=== PATIENT | male | born 1980 | race Two or more races ===

== ENCOUNTER 2016-07-15 23:55 | Observation (INO) | payer SELFPAY ==
--- NOTE | 2016-07-16 00:11 | EDPHY ---
H & P Stated Complaint: chest pain x 1 week, SOB, numbness in left hand/arm HPI/ROS: HPI CHIEF COMPLAINT: Chest pain, left hand tingling. HISTORY OF PRESENT ILLNESS: This patient very pleasant 36-year-old male denies any significant medical history surgical history presents to the emergency room left-sided chest pressure with tingling down his left arm and left hand. He is [place]-speaking only and food and beverage attendant was used for history review of systems. He states approximately 2 hours ago developed pressure in left side of his chest with tingling down his left arm. He denies nausea, jaw pain, back pain, neck pain, vomiting. He does have associated shortness of breath with this. This happened at rest. He tells me his left-sided chest pressure is currently 6 /10. Denies headache or neck pain. Denies weakness. He tells me a few years ago he had almost a heart attack he tells me he was given medication to prevent Past Medical History: No known significant medical history Past Surgical History: No significant surgical history Social History: Occasional alcohol use, denies drugs, tobacco products Family History: Noncontributory ROS REVIEW OF SYSTEMS: A comprehensive 10 point review of systems is otherwise negative aside from elements mentioned in the history of present illness. Exam Constitutional triage nursing summary reviewed, vital signs reviewed, awake/ alert. Eyes normal conjunctivae and sclera, EOMI, PERRLA. HENT normal inspection, atraumatic, moist mucus membranes, no epistaxis, neck supple/ no meningismus, no raccoon eyes. Respiratory clear to auscultation bilaterally, normal breath sounds, no respiratory distress, no wheezing. Cardiovascular rate normal, regular rhythm, no murmur, no edema, distal pulses normal. Gastrointestinal soft, non-tender, no rebound, no guarding, normal bowel sounds, no distension, no pulsatile mass. Genitourinary no CVA tenderness. Musculoskeletal no midline vertebral tenderness, full range of motion, no calf swelling, no tenderness of extremities, no meningismus, good pulses, neurovascularly intact. Skin pink, warm, & dry, no rash, skin atraumatic. Neurologic awake, alert and oriented x 3, AAOx3, moves all 4 extremities equally, motor intact, sensory intact, CN II-XII intact, normal cerebellar, normal vision, normal speech. Psychiatric normal mood/affect. Heme/Lymph/Immune no lymphadenopathy. Differential diagnosis includes but is not limited to: ACS, atypical chest pain , pneumothorax, pneumonia, pulmonary embolism, aortic dissection, congestive heart failure, tumor, musculoskeletal pain, esophageal pain, GERD, peptic ulcer disease, pancreatitis Medical Decision Making: This patient will have and IV established will recieve full-dose aspirin and nitroglycerin see if this improves his left-sided chest pressure. Will check troponin, EKG, chest x-ray patient be placed on full patent examiner. We will re-evaluate him after nitroglycerin Re-evaluation: EKG interpretation by me on record in [facility] system. Impression time of EKG is 0016, this is sinus rhythm rate of 74, there is no acute ischemic changes specifically no ST elevation, ST depression, T-wave abnormalities prolonged intervals. Unremarkable normal appearing EKG. ED x-ray chest one view: Negative for acute cardiopulmonary disease. Image interpreted by myself. Re-eval: 0148: Patient is now chest pain-free after 3 nitroglycerin tabs. He states he feels much better. He did receive full-dose aspirin. His noted is D- dimer is negative his troponin is negative and his EKG is nonischemic. Due to the complaint of patient having chest pressure left-sided with tingling down his left arm improved with nitroglycerin patient be admitted to the [facility] for ACS rule out. 0159: re-evaluation at this time patient is chest pain-free. I did speak with the hospitalist service Dr. Marino who accepts admission for chest pain rule out given that his pain improved with nitroglycerin. Does not have any significant risk factors for coronary artery disease however his story with chest pressure left-sided with tingling down his left arm relieved by nitro is concerning. His initial EKG is nonischemic, troponin negative, D-dimer negative and chest x-ray unremarkable. Patient be admitted to the [facility] for observation and cardiac rule out. Source: Patient - Personal History Tetanus Vaccine Date: < 10 years - Medical/Surgical History Hx Asthma: No Hx Chronic Respiratory Disease: No Hx Diabetes: No Hx Cardiac Disease: No Hx Renal Disease: No Hx Cirrhosis: No Hx Alcoholism: No Hx HIV/AIDS: No Hx Splenectomy or Spleen Trauma: No Other PMH: seizures, liver tumor - Social History Smoking Status: Former smoker Constitutional: Initial Vital Signs Temperature (C) 37 C 07/16/16 00:01 Heart Rate 82 07/16/16 00:01 Respiratory Rate 20 07/16/16 00:01 Blood Pressure 124/87 H 07/16/16 00:01 O2 Sat (%) 94 07/16/16 00:01 O2 Delivery Mode Room Air Allergies/Adverse Reactions: No Known Allergies Allergy (Unverified 07/15/16 23:59) Medical Decision Making - Data Points Laboratory Results: Laboratory Results 07/16/16 00:20 07/16/16 00:20 07/16/16 00:20 WBC 8.61 10^3/uL (3.80-9.50) RBC 5.16 10^6/uL (4.40-6.38) Hgb 15.1 g/dL (13.7-17.5) Hct 44.6 % (40.0-51.0) MCV 86.4 fL (81.5-99.8) MCH 29.3 pg (27.9-34.1) MCHC 33.9 g/dL (32.4-36.7) RDW 12.1 % (11.5-15.2) Plt Count 218 10^3/uL (150-400) MPV 10.6 fL (8.7-11.7) Neut % (Auto) 52.6 % (39.3-74.2) Lymph % (Auto) 36.0 % (15.0-45.0) [place] % (Auto) 6.9 % (4.5-13.0) Eos % (Auto) 2.8 % (0.6-7.6) Baso % (Auto) 0.5 % (0.3-1.7) Nucleat RBC Rel Count 0.0 % (0.0-0.2) Absolute Neuts (auto) 4.54 10^3/uL (1.70-6.50) Absolute Lymphs (auto) 3.10 H 10^3/uL (1.00-3.00) Absolute Monos (auto) 0.59 10^3/uL (0.30-0.80) Absolute Eos (auto) 0.24 10^3/uL (0.03-0.40) Absolute Basos (auto) 0.04 10^3/uL (0.02-0.10) Absolute Nucleated RBC 0.00 10^3/uL (0-0.01) Immature Gran % 1.2 H % (0.0-1.1) Immature Gran # 0.10 10^3/uL (0.00-0.10) PT 12.5 SEC (12.0-15.0) INR 0.94 (0.83-1.16) APTT 26.3 SEC (23.0-38.0) D-Dimer < 0.27 ug/mLFEU (0.00-0.50) Sodium 139 mEq/L (134-144) Potassium 4.0 mEq/L (3.5-5.2) Chloride 105 mEq/L (97-110) Carbon Dioxide 24 mEq/l (22-31) Anion Gap 10 mEq/L (8-16) BUN 17 mg/dL (7-23) Creatinine 0.9 mg/dL (0.7-1.3) Estimated GFR > 60 Glucose 101 H mg/dL (70-100) Calcium 9.2 mg/dL (8.5-10.4) Magnesium 2.1 mg/dL (1.6-2.3) Total Bilirubin 0.9 mg/dL (0.1-1.4) Conjugated Bilirubin 0.2 mg/dL (0.0-0.5) Unconjugated Bilirubin 0.7 mg/dL (0.0-1.1) AST 19 IU/L (17-59) ALT 29 IU/L (21-72) Alkaline Phosphatase 97 IU/L (38-126) Creatine Kinase 133 IU/L (0-224) CK-MB (CK-2) Fraction 1.12 ng/mL (0-3.19) Troponin I < 0.012 ng/mL (0-0.034) NT-Pro-B Natriuret Pep 42 pg/mL (0-125) Total Protein 7.4 g/dL (6.3-8.2) Albumin 4.1 g/dL (3.5-5.0) Lipase 71.0 IU/L (23-300) Medications Given: Discontinued Medications Aspirin (Aspirin) 324 mg PO EDNOW ONE Stop: 07/16/16 00:44 Last Admin: 07/16/16 01:14 Dose: 324 mg Nitroglycerin (Nitrostat) 0.4 mg SL Q5M PRN PRN Reason: Chest Pain Stop: 07/16/16 00:54 Last Admin: 07/16/16 01:26 Dose: 0.4 mg Departure - Departure Disposition: [facility] Inpatient Acute Clinical Impression: Chest pain Qualifiers: Chest pain type: unspecified Qualifier Code: (R07.9) Chest pain, unspecified Condition: Fair Referrals: Tamika Tran PA [Primary Care Provider] - As per Instructions
--- NOTE | 2016-07-16 00:24 | CPEKG ---
Heart Rate: 74 RR Interval: 811 P-R Interval: 148 QRSD Interval: 88 QT Interval: 364 QTC Interval: 404 P Gully: 63 QRS Gully: 30 T Wave Gully: 7 EKG Severity - NORMAL ECG - EKG Impression: SINUS RHYTHM Electronically Signed By: Negro Jha 17-Jul-2016 07:02:04
[2016-07-16] MEDS ORDERED: ASPIRIN 81 MG CHEWABLE TAB PO ONE (00:43)
[2016-07-16 00:50] LABS: % IMMATURE GRANULYOCYTES 1.2 % (0.0-1.1); ADD DIFF? NO; ADD MORPH? NO; ADD SCAN? NO; ATYPICAL LYMPHOCYTE FLAG 10 (0-99); FRAGMENT RBC FLAG 0 (0-99); HEMATOCRIT 44.6 % (40.0-51.0); HEMOGLOBIN 15.1 g/dL (13.7-17.5); LEFT SHIFT FLG 10 (0-99); LIPEMIA HEMOLYSIS FLAG 90 (0-99); MEAN CELL HEMOGLOBIN 29.3 pg (27.9-34.1); MEAN CELL HEMOGLOBIN CONCENTR. 33.9 g/dL (32.4-36.7); MEAN CELL VOLUME 86.4 fL (81.5-99.8); MEAN PLATELET VOLUME 10.6 fL (8.7-11.7); PLATELET CLUMPS FLAG 10 (0-99); PLATELET COUNT 218 10^3/uL (150-400); RED BLOOD CELL COUNT 5.16 10^6/uL (4.40-6.38); RED CELL DISTRIBUTION WIDTH 12.1 % (11.5-15.2)
[2016-07-16 00:58] LABS: ALANINE AMINOTRANSFERASE 29 IU/L (21-72); ALBUMIN 4.1 g/dL (3.5-5.0); ALKALINE PHOSPHATASE 97 IU/L (38-126); ANION GAP 10 mEq/L (8-16); APTT 26.3 SEC (23.0-38.0); ASPARTATE AMINOTRANSFERASE 19 IU/L (17-59); BILIRUBIN,TOTAL 0.9 mg/dL (0.1-1.4); BILIRUBIN-CONJUGATED 0.2 mg/dL (0.0-0.5); BILIRUBIN-UNCONJUGATED 0.7 mg/dL (0.0-1.1); CALCIUM 9.2 mg/dL (8.5-10.4); CARBON DIOXIDE 24 mEq/l (22-31); CHLORIDE 105 mEq/L (97-110); CREATININE 0.9 mg/dL (0.7-1.3); GLOMERULAR FILTRATION RATE > 60; GLUCOSE 101 mg/dL (70-100); INR 0.94 (0.83-1.16); MAGNESIUM 2.1 mg/dL (1.6-2.3); PROTIME(PATIENT) 12.5 SEC (12.0-15.0); SODIUM 139 mEq/L (134-144); TOTAL PROTEIN 7.4 g/dL (6.3-8.2)
[2016-07-16] MEDS ORDERED: NITROGLYCERIN 0.4 MG BTL SL ONE (01:18)
[2016-07-16 01:20] LABS: CREATINE KINASE-MB FRACTION 1.12 ng/mL (0-3.19); TROPONIN I < 0.012 ng/mL (0-0.034)
[2016-07-16] MEDS: NITROGLYCERIN 0.4 MG BTL SL PRN ×2 (01:20→01:26)
--- NOTE | 2016-07-16 01:41 | CPEKG ---
Heart Rate: 158 RR Interval: 380 QRSD Interval: 248 QT Interval: 300 QTC Interval: 487 P Stigler: 0 QRS Stigler: 234 EKG Severity - DEFECTIVE ECG - EKG Impression: NO FURTHER ANALYSIS ATTEMPTED FOR THIS ECG - NOT ENOUGH LEADS COULD BE MEASURED Electronically Signed By: Negro Jha 17-Jul-2016 07:02:04
[2016-07-16 02:32] VITALS: RESP 16
[2016-07-16] MEDS ORDERED: NITROGLYCERIN 0.4 MG BTL SL PRN (02:34)
[2016-07-16] MEDS ORDERED: ACETAMINOPHEN 325 MG TAB PO PRN (02:34)
--- NOTE | 2016-07-16 05:52 | PDGENHP ---
History and Physical - Chief Complaint Chest pain - History of Present Illness Patient is a 36-year-old male with no known medical history who presents to the ED complaining of chest pain. Patient reports earlier in the day he was working in [employer], which involved shoveling snow into his work truck. Then later in the evening he was sitting at home and on his couch when he began experiencing left-sided chest pressure, which he describes it had radiated down his left arm with associated left arm numbness and tingling. He said the pressure was constant, not associated with palpitations, nausea or lightheaded. Symptoms persisted for over an hour so he decided to come to the ED for further evaluation. On review of his medical records, it appears that 2011 patient had been evaluated in the ED for several times for left-sided chest wall pain, which was deemed to be musculoskeletal in nature. He seems he was referred to a confidential secretary but patient denies ever being evaluated by a confidential secretary. He has never had a stress test or an echocardiogram that he is aware of. On arrival to the ED patient was afebrile and hemodynamically stable. Labs including troponin were unremarkable. Chest x-ray was unremarkable. EKG did not reveal any evidence of ischemia. Patient was admitted to the hospital service for further management. History Information - Allergies/Home Medication List Allergies/Adverse Reactions: No Known Allergies Allergy (Unverified 07/15/16 23:59) I have personally reviewed and updated: family history, medical history, social history, surgical history - Past Medical History no pertinent PMH - Surgical History Additional surgical history: femoral fracture repair - Family History Additional family history: Patient has 2 cousins and uncle who he reports were in their 40s from CAD. 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 Lives with and children, originally from [place] Review of Systems ROS: 10pt was reviewed & negative except for what was stated in HPI & below Physical Exam Temp Pulse Resp BP Pulse Ox 37 C 76 16 102/67 92 07/16/16 00:01 07/16/16 02:30 07/16/16 02:30 07/16/16 02:30 07/16/16 02:30 Constitutional: no apparent distress, appears nourished, not in pain Eyes: PERRL, anicteric sclera, EOMI Ears, Nose, Mouth, Throat: moist mucous membranes, hearing normal, ears appear normal, no oral mucosal ulcers Cardiovascular: regular rate and rhythym, no murmur, rub, or gallop, pulses symmetric bilaterally, No JVD, No edema Peripheral Pulses: 2+: dorsalis-pedis (R), dorsalis-pedis (L) Respiratory: no respiratory distress, no rales or rhonchi, clear to auscultation Gastrointestinal: normoactive bowel sounds, soft, non-tender abdomen, no palpable masses Genitourinary: no bladder fullness, no bladder tenderness Skin: warm, normal color, no rashes or abrasions, no fluctuance, no induration, No mottled Musculoskeletal: full muscle strength, no muscle tenderness, normal joint ROM, no joint effusions Neurologic: AAOx3, sensation intact bilaterally, CN II-XII Intact, No weakness, No numbness Psychiatric: interacting appropriately, not anxious, not encephalopathic, thought process linear Lab Data & Imaging Review 07/16/16 00:20 07/16/16 00:20 WBC 8.61 10^3/uL (3.80-9.50) 07/16/16 00:20 RBC 5.16 10^6/uL (4.40-6.38) 07/16/16 00:20 Hgb 15.1 g/dL (13.7-17.5) 07/16/16 00:20 Hct 44.6 % (40.0-51.0) 07/16/16 00:20 MCV 86.4 fL (81.5-99.8) 07/16/16 00:20 MCH 29.3 pg (27.9-34.1) 07/16/16 00:20 MCHC 33.9 g/dL (32.4-36.7) 07/16/16 00:20 RDW 12.1 % (11.5-15.2) 07/16/16 00:20 Plt Count 218 10^3/uL (150-400) 07/16/16 00:20 MPV 10.6 fL (8.7-11.7) 07/16/16 00:20 Neut % (Auto) 52.6 % (39.3-74.2) 07/16/16 00:20 Lymph % (Auto) 36.0 % (15.0-45.0) 07/16/16 00:20 [place] % (Auto) 6.9 % (4.5-13.0) 07/16/16 00:20 Eos % (Auto) 2.8 % (0.6-7.6) 07/16/16 00:20 Baso % (Auto) 0.5 % (0.3-1.7) 07/16/16 00:20 Nucleat RBC Rel Count 0.0 % (0.0-0.2) 07/16/16 00:20 Absolute Neuts (auto) 4.54 10^3/uL (1.70-6.50) 07/16/16 00:20 Absolute Lymphs (auto) 3.10 10^3/uL (1.00-3.00) H 07/16/16 00:20 Absolute Monos (auto) 0.59 10^3/uL (0.30-0.80) 07/16/16 00:20 Absolute Eos (auto) 0.24 10^3/uL (0.03-0.40) 07/16/16 00:20 Absolute Basos (auto) 0.04 10^3/uL (0.02-0.10) 07/16/16 00:20 Absolute Nucleated RBC 0.00 10^3/uL (0-0.01) 07/16/16 00:20 Immature Gran % 1.2 % (0.0-1.1) H 07/16/16 00:20 Immature Gran # 0.10 10^3/uL (0.00-0.10) 07/16/16 00:20 PT 12.5 SEC (12.0-15.0) 07/16/16 00:20 INR 0.94 (0.83-1.16) 07/16/16 00:20 APTT 26.3 SEC (23.0-38.0) 07/16/16 00:20 D-Dimer < 0.27 ug/mLFEU (0.00-0.50) 07/16/16 00:20 Sodium 139 mEq/L (134-144) 07/16/16 00:20 Potassium 4.0 mEq/L (3.5-5.2) 07/16/16 00:20 Chloride 105 mEq/L (97-110) 07/16/16 00:20 Carbon Dioxide 24 mEq/l (22-31) 07/16/16 00:20 Anion Gap 10 mEq/L (8-16) 07/16/16 00:20 BUN 17 mg/dL (7-23) 07/16/16 00:20 Creatinine 0.9 mg/dL (0.7-1.3) 07/16/16 00:20 Estimated GFR > 60 07/16/16 00:20 Glucose 101 mg/dL (70-100) H 07/16/16 00:20 Calcium 9.2 mg/dL (8.5-10.4) 07/16/16 00:20 Magnesium 2.1 mg/dL (1.6-2.3) 07/16/16 00:20 Total Bilirubin 0.9 mg/dL (0.1-1.4) 07/16/16 00:20 Conjugated Bilirubin 0.2 mg/dL (0.0-0.5) 07/16/16 00:20 Unconjugated Bilirubin 0.7 mg/dL (0.0-1.1) 07/16/16 00:20 AST 19 IU/L (17-59) 07/16/16 00:20 ALT 29 IU/L (21-72) 07/16/16 00:20 Alkaline Phosphatase 97 IU/L (38-126) 07/16/16 00:20 Creatine Kinase 133 IU/L (0-224) 07/16/16 00:20 CK-MB (CK-2) Fraction 1.12 ng/mL (0-3.19) 07/16/16 00:20 Troponin I < 0.012 ng/mL (0-0.034) 07/16/16 00:20 NT-Pro-B Natriuret Pep 42 pg/mL (0-125) 07/16/16 00:20 Total Protein 7.4 g/dL (6.3-8.2) 07/16/16 00:20 Albumin 4.1 g/dL (3.5-5.0) 07/16/16 00:20 Lipase 71.0 IU/L (23-300) 07/16/16 00:20 Visualized and Interpreted Chest x-ray results: Yes Chest X-Ray results: no infiltrate, normal Visualized and Interpreted EKG results: Yes EKG Interpretation: Positive for: normal sinsus rhythm. Negative for: NS ST wave abnormalities Assessment & Plan Assessment: Patient is a 36-year-old male with no significant medical history who presents to the ED with complaint of left-sided chest pain with associated right left arm numbness. Initial ED workup is unrevealing, symptoms improved with aspirin and sublingual nitro. Plan: # chest pain Patient pain description is concerning for cardiac etiology, patient's risk factors include positive family history for premature CAD, former smoking history. Will rule out ACS with serial troponins and EKGs, if unrevealing will obtain exercise stress test in a.m. for further risk stratification. Will continue aspirin and also check lipid panel and TSH. # dispo: observe in [facility] # full code
[2016-07-16 06:47] LABS: CHOLESTEROL 206 mg/dL (140-200); CHOLESTEROL/HDL RATIO 5.02 RATIO (1.00-4.97); HIGH DENSITY LIPOPROTEIN 41 mg/dL (40-65); LDL/HDL RATIO 2.95 RATIO (1.00-3.64); LOW DENSITY LIPOPROTEIN 121 mg/dL (70-100); NON-HIGH DENSITY LIPOPROTEIN 165 mg/dL (90-129); TRIGLYCERIDE 222 mg/dL (40-150); VERY LOW DENSITY LIPOPROTEINS 44 mg/dL (8-25)
[2016-07-16] MEDS ORDERED: ASPIRIN 325 MG TAB PO SCH (09:00)
--- NOTE | 2016-07-16 09:23 | CPEKG ---
Heart Rate: 67 RR Interval: 896 P-R Interval: 148 QRSD Interval: 92 QT Interval: 372 QTC Interval: 393 P Conley: 69 QRS Conley: 54 T Wave Conley: 18 EKG Severity - NORMAL ECG - EKG Impression: SINUS RHYTHM Electronically Signed By: Danny Mitchell 16-Jul-2016 17:21:48
[2016-07-16 09:27] VITALS: O2SAT 94
--- NOTE | 2016-07-16 09:52 | ECHO ---
[id number] + + [address] : : [place] [address] : : [phone] + + Adult Echocardiographic Report + + :Name: KERON CLEMENTS JStudy Date: 07/16/2016 08:23 AM : : Hospital Admission Number: [id number] Patient Location: 144: :: 1980 Gender: Male Height: 66 in : :Age: 36 yrs Race: ,OT Weight: 160 lb : :Reason For Study: chest pain, syncope : : BSA: 1.8 meters2 : :History: chest pain, syncope : + + MMode/2D Measurements & Calculations IVSd: 0.70 cm RVDd: 2.5 cm FS: 28.8 % Ao root diam: LVPWd: 0.86 cm LVIDd: 4.5 cm EDV(Teich): 2.4 cm LVIDs: 3.2 cm 94.8 ml LA dimension: ESV(Teich): 3.3 cm 42.1 ml EF(Teich): 55.6 % LVLd ap4: 8.1 cm SV(MOD-sp4): EDV(MOD-sp4): 61.0 ml 102.0 ml LVLs ap4: 7.2 cm ESV(MOD-sp4): 41.0 ml EF(MOD-sp4): 59.8 % Normal Measurement Values: + + :LVIDd (3.5-5.7cm) IVSd (0.6-1.1cm) LVPWd (0.6-1.1cm) Aortic Root (2.0-3.7cm)Left Atrium (1.5-4.0cm): :LV Vol(d) (76-115ml) LV Vol(s) (29-48ml) Ejec Fraction (50-65%)PV Rigo (0.6- 1.2m/s) TV Rigo (0.4-1.0m/s) : :MV E Rigo (0.8-1.0m/s)MV A Rigo (0.3-1.0m/s)LVOT Rigo (0.7-1.2m/s) Asc Ao Rigo ( 0.9-1.8m/s) : + + Doppler Measurements & Calculations MV E max rigo: Ao V2 max: LV V1 max: PA V2 max: 66.6 cm/sec 114.7 cm/sec 108.6 cm/sec 118.2 cm/sec MV A max rigo: Ao max PG: LV V1 max PG: PA max P.7 cm/sec 5.3 mmHg 4.7 mmHg 5.6 mmHg MV E/A: 1.1 MV dec time: 0.24 sec Left Ventricle The left ventricle is normal in size and function. There is normal left ventricular wall thickness. Ejection Fraction = 55-60%. No regional wall motion abnormalities noted. Right Ventricle The right ventricle is normal in size and function. Atria The left atrial size is normal. Right atrial size is normal. Mitral Valve The mitral valve is normal in structure and function. There is no mitral valve stenosis. There is trace mitral regurgitation. Tricuspid Valve The tricuspid valve is normal in structure and function. There is no tricuspid stenosis. There is trace to mild tricuspid regurgitation. Aortic Valve The aortic valve is trileaflet. There is no aortic stenosis. There is no aortic insufficiency. Pulmonic Valve The pulmonic valve is normal in structure and function. Great Vessels The aortic root is normal size. Pericardium/Pleural There is no pericardial effusion. Conclusion A two-dimensional transthoracic echocardiogram with M-mode and Doppler was performed. The left ventricle is normal in size and function. Ejection Fraction = 55-60%. There is trace mitral regurgitation. There is trace to mild tricuspid regurgitation. Final Reading Physician: Marianna Castaneda signed on 07/16/2016 09:52 AM Ordering Physician: Erin Marino Performed By: Marlene Smith
--- NOTE | 2016-07-16 10:50 | DX ---
Chest, One View Portable at 0057 hours History: Chest pain. Comparison: June 2011 Findings: Poor respiratory phase. Cardiac silhouette is normal in size. No pneumonia, congestive hea rt failure, pleural effusion, or pneumothorax. Impression: 1. Poor respiratory phase without definite focal infiltrate 2. Consider chest two views when the patient's medical condition permits.
[2016-07-16 12:09] VITALS: BP 118/75; PULSE 103; TEMP 98.4
--- NOTE | 2016-07-16 18:30 | GDS ---
[f rep st] DISCHARGE SUMMARY DIAGNOSIS: Chest pain, likely due to chest wall pain. HOSPITAL COURSE: A 36-year-old man admitted with 8 days of chest pain. He had negative troponins, n onischemic EKG. Underwent a treadmill stress test, went over 10 minutes on the Jamie protocol with n o ischemic changes. This was a normal exercise EKG test. I think this is likely due to pectoralis s train based on my exam. Recommended ibuprofen and Tylenol. Notably, his lipids were drawn and his L DL is 121, which is appropriate given his risk factor profile. This was all discussed with him via [facility] naturopathic physician. He also underwent an echocardiogram, which showed normal ejection fraction. No wall motion abnormalities. Trace mitral and tricuspid regurgitation. /[id number]
== END 2016-07-16 15:49 | disposition home or self-care (01) ==
LOC: F1N 07-16 02:38
PROVIDERS: ADMIT Internal Medicine; ATTEND Internal Medicine
DX: R07.89 Other chest pain (principal); Z87.891 Personal history of nicotine dependence
CPT/HCPCS: G0378

== ENCOUNTER 2017-02-25 19:40 | Emergency (ER) | payer MEDICAID, OTHER ==
[2017-02-25 19:50] VITALS: TEMP 99
[2017-02-25] MEDS ORDERED: PROPARACAINE 0.5% 15 ML OPHT DROP LEFTEYE ONE (20:02)
[2017-02-25] MEDS ORDERED: FLUORESCEIN SODIUM 1 MG STRIP OP ONE (20:02)
--- NOTE | 2017-02-25 20:06 | EDPHY ---
H & P Stated Complaint: eye irritation; post injury on 12/20 - Personal History Current Tetanus/Diphtheria Vaccine: Yes Tetanus Vaccine Date: < 10 years - Medical/Surgical History Hx Asthma: No Hx Chronic Respiratory Disease: No Hx Diabetes: No Hx Cardiac Disease: No Hx Renal Disease: No Hx Cirrhosis: No Hx Alcoholism: No Hx HIV/AIDS: No Hx Splenectomy or Spleen Trauma: No Other PMH: PMHx: seizures, liver tumor. PSHx: denies - Social History Smoking Status: Former smoker Time Seen by Provider: 02/25/17 20:04 HPI/ROS: CHIEF COMPLAINT: Left eye injury HISTORY OF PRESENT ILLNESS: This patient is a 36 year old male complaining of blurry vision, redness, and discharge in his left eye secondary to an injury at work 12/19/16, two months ago. 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 He has followed up numerous times with workers comp providers at [facility], where he was diagnosed with "orbital contusion ". He continues to feel a foreign body sensation and pain. He was prescribed drops which relieved his redness and pain, but these symptoms returned when he finished his prescription. His vision has been getting worse little by little since the incident. Yesterday, his eye started watering and he began to have purulent discharge. Today, the redness, discharge, and blurriness increased. He states his vision in his left eye is very poor, but he can see color and has full field of vision though it is blurry. His foreign body sensation has never resolved. He denies recent illness or other complaints. REVIEW OF SYSTEMS: A 10 point review of systems was performed and is negative with the exception of the elements mentioned in the history of present illness. (Jackelin Hair) - Medical/Surgical History PMH: Seizures, liver tumor. (Jackelin Hair) - Social History Additional Social History: Pashto-speaking. Daughter at bedside. 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 (Jackelin Hair) - Physical Exam Exam: left eye: Visual Acuity: noted from Nurse's notes, able to count fingers at 3 feet max distance Lids: lower lid everted--7mm plastic FB in conjunctival sac, upper lid everted-- 9mm undulating plastic FB present Conjunctivae: diffuse erythema and yellowish discharge Pupils: equal round and reactive to light EOMI Cornea: Normal, no fluorescein upake Anterior chamber: Clear, no hyphema and no WBC (Jackelin Hair) Constitutional: Initial Vital Signs Temperature (C) 37.2 C 02/25/17 19:47 Heart Rate 90 02/25/17 19:47 Respiratory Rate 14 02/25/17 19:47 Blood Pressure 114/70 02/25/17 19:47 O2 Sat (%) 95 02/25/17 19:47 O2 Delivery Mode Room Air Allergies/Adverse Reactions: No Known Allergies Allergy (Unverified 07/15/16 23:59) Home Medications: Medication Instructions Recorded NK [No Known Home Meds] 07/16/16 Medical Decision Making Procedures: Alcaine instilled in left eye. FB's easily and gently removed with Qtip and forceps. Fluorescein instilled: no uptake (Jackelin Hair) ED Course/Re-evaluation: This pt presents with acute conjunctivitis secondary to retained FB in left conjunctival sac. FB easily removed. Culture sent. Vision unchanged following foreign body removal, but pain resolved. Consulted Dr. Kirk, will obtain CT orbit tonight. If CT negative, f/u in office in am. Ocuflox dispensed. (Jackelin Hair) Differential Diagnosis: Differential diagnosis includes hyphema, acute iritis, traumatic mydriasis, corneal abrasion, globe rupture. (Jackelin Hair) Other Provider: No intra orbital foreign body per Dr. Hoskins on CT scan at 9:[address] Hair. (Grover Gonzalez) - Data Points Microbiology Results: MICROBIOLOGY 02/25/17 20:25 Eye - Swab Gram Stain - Final Medications Given: Discontinued Medications Fluorescein Sodium (Lfcid-P-Capjs) 1 mg OP EDNOW ONE Stop: 02/25/17 20:03 Last Admin: 02/25/17 20:06 Dose: 1 mg Ofloxacin (Ocuflox 0.3% Opht Drops Prepack) 1 btl TAKEHOME EDNOW ONE Stop: 02/25/17 20:36 Last Admin: 02/25/17 21:08 Dose: 1 btl Proparacaine HCl (Alcaine 0.5%) 1 drops LEFTEYE ONCE ONE Stop: 02/25/17 20:03 Last Admin: 02/25/17 20:06 Dose: 1 drops Departure - Departure Disposition: Home, Routine, Self-Care Clinical Impression: Eye foreign bodies Qualifiers: Encounter type: initial encounter Laterality: left Qualified Code(s): T15.92XA - Foreign body on external eye, part unspecified, left eye, initial encounter Conjunctivitis Qualifiers: Conjunctivitis type: acute Acute conjunctivitis type: unspecified Laterality: left Qualified Code(s): H10.32 - Unspecified acute conjunctivitis, left eye Condition: Good Instructions: Eye Foreign Body (ED), Conjunctivitis (ED) Additional Instructions: 1. Follow up with an eye doctor tomorrow without fail. Call to make an appointment. 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 The address and phone number are attached. 2. Use your Ocuflox drops as prescribed. 3. Return to the emergency department for increased pain, redness, or discharge from your eye, any further changes in vision, or other worsening of condition. 1. Madeline james richie de seguimiento con un doctor del noemy maana sin falta. Llame para hacer james richie. Le hemos recomendado con el oftalmologo en llamada. La direccion y uday de telefono esta adjuntos. 2. Use vianey gotas Ocuflox a elda se le recetaron. 3. Regrese a la tito de emergencia si incrementa el dolor, rojizo, o si el noemy drena, cualquier cambio en akins vision, u otra condicion peor. Referrals: Jarret Kirk MD [Medical Doctor] - As per Instructions Report Scribed for: Jackelin Hair Report Scribed by: Richa Mendenhall Date of Report: 02/25/17 Time of Report: 20:06 Physician Review and Approval Statement: 02/25/17 20:06 Portions of this note were transcribed by a medical coding specialist. I personally performed a history, physical exam, medical decision making, and confirmed accuracy of information the transcribed note. (Jackelin Hair)
[2017-02-25] MEDS ORDERED: OFLOXACIN 0.3% SOLN PREPACK OPHT.BTL TAKEHOME ONE (20:35)
[2017-02-25 22:34] VITALS: BP 115/72; PULSE 84; RESP 16; O2SAT 96
== END 2017-02-25 22:34 | disposition home or self-care (01) ==
PROC: 08C1XZZ Extirpation of Matter from Left Eye, External Approach (ICD-10-PCS; principal; 2017-02-25)
DX: T15.12XA Foreign body in conjunctival sac, left eye, initial encounter (principal); H10.32 Unspecified acute conjunctivitis, left eye; W29.4XXA Contact with nail gun, initial encounter; Y92.69 Other specified industrial and construction area as the place of occurrence of the external cause; Y99.0 Civilian activity done for income or pay; Y93.89 Activity, other specified; Z87.891 Personal history of nicotine dependence

== ENCOUNTER 2018-04-16 18:38 | Emergency (ER) | payer SELFPAY ==
[2018-04-16 18:46] VITALS: BP 103/71
--- NOTE | 2018-04-16 19:17 | EDPHY ---
H & P Stated Complaint: Mech fall x1wk, xyphoid pn, crepitus c mvmnt, denies SOB Time Seen by Provider: 04/16/18 19:16 HPI/ROS: HPI: This is a 37-year-old male who presents with Chief Complaint: Mech fall x1wk, xyphoid pn, denies SOB Location: lower sternum Quality: Injury Duration: 1 week ago Signs and Symptoms: no shortness of breath at rest, no shortness of breath on exertion, no cough, no chest pain, no palpitations, no lower extremity edema, no wheezing, no orthopnea, no paroxysmal nocturnal dyspnea, no fever, no injury/ trauma, no hemoptysis, no carpal pedal spasms Timing: Acute, intermittent episodes Severity: Mild Context: Patient presents complaining of accidentally falling forward when he tripped over something in the bathroom 1 week ago. He reports that he fell against the bath tub hitting his lower sternum. He felt immediate, constant, moderate, nonradiating pain. The pain has persisted with touching the area. Denies any cough, bruising, shortness of breath, pleuritic chest pain. He has tried ibuprofen with mild transient relief. Modifying Factors: See above Comment: ROS: A comprehensive 10 system review of systems is otherwise negative aside from elements mentioned in the history of present illness. MEDICAL/SURGICAL/SOCIAL HISTORY: Medical history: Seizure disorder, liver tumor Surgical history: Denies Social history: with children. Former smoker. CONSTITUTIONAL: Middle-aged male, polite and cooperative, awake and alert, no obvious distress HEENT: Atraumatic and normocephalic, PERRL, EOMI. Nares patent; no rhinorrhea; no nasal mucosal edema. Tympanic membranes clear. Oropharynx clear, no exudate and moist pink mucosa. Airway patent. No lymphadenopathy. No meningismus. Cardiovascular: Normal S1/S2, regular rate, regular rhythm, without murmur rub or gallop. PULMONARY/CHEST: Symmetrical and mild tenderness over the xiphoid process; no crepitus/ecchymosis. Clear to auscultation bilaterally. Good air movement. No accessory muscle usage. ABDOMEN: Soft, nondistended, nontender, no rebound, no guarding, no peritoneal signs, no masses or organomegaly. No CVAT. EXTREMITIES: 2/2 pulses, strength 5/5, no deformities, no clubbing, no cyanosis or edema. NEUROLOGICAL: no focal neuro deficits. GCS 15. SKIN: Warm and dry, no erythema. no rash. Good capillary refill. Source: Patient Exam Limitations: No limitations - Personal History Current Tetanus/Diphtheria Vaccine: Yes Tetanus Vaccine Date: < 10 years - Medical/Surgical History Hx Asthma: No Hx Chronic Respiratory Disease: No Hx Diabetes: No Hx Cardiac Disease: No Hx Renal Disease: No Hx Cirrhosis: No Hx Alcoholism: No Hx HIV/AIDS: No Hx Splenectomy or Spleen Trauma: No Other PMH: PMHx: seizures, liver tumor. PSHx: denies - Social History Smoking Status: Former smoker Constitutional: Initial Vital Signs Temperature (C) 36.4 C 04/16/18 18:42 Heart Rate 79 04/16/18 18:42 Respiratory Rate 16 04/16/18 18:42 Blood Pressure 103/71 04/16/18 18:42 O2 Sat (%) 95 04/16/18 18:42 O2 Delivery Mode Room Air Allergies/Adverse Reactions: No Known Allergies Allergy (Verified 04/16/18 18:42) Home Medications: Medication Instructions Recorded oxyCODONE/APAP 5/325 [Percocet 1 - 2 tab PO Q4H PRN #10 tab 04/16/18 5/325 (*)] Medical Decision Making - Diagnostics Imaging Results: Imaging Impressions Chest X-Ray 04/16/18 18:46 Impression: Nothing acute identified. ED Course/Re-evaluation: Vital signs reviewed and stable upon arrival. No hypoxia respiratory distress. Chest x-ray my read via PAC shows no pneumothorax, fracture, soft tissue swelling. Radiology noted a chronic T8 mild compression fracture. Question patient about back injury and he reports that he fell approximately 1 year ago but denies any radiation, weakness, decreased range of motion, back pain. Offered patient CT of his chest to eval for fracture not seen on xray and he politely declined secondary to financial concerns. I advised that he should follow up with his primary care provider in 1 week for repeat imaging if pain persists. This patient was seen under the supervision of my secondary supervising physician. I evaluated care for this patient independently. Discussed this patient with Dr. Gamboa. Differential Diagnosis: Differential diagnosis includes but is not limited to pneumothorax, sternal fracture, rib fracture, intra-abdominal bleeding. Departure - Departure Disposition: Home, Routine, Self-Care Clinical Impression: Chest wall soft tissue injury Qualifiers: Encounter type: initial encounter Qualified Code(s): S29.9XXA - Unspecified injury of thorax, initial encounter Contusion of sternum Qualifiers: Encounter type: initial encounter Qualified Code(s): S20.20XA - Contusion of thorax, unspecified, initial encounter Condition: Good Instructions: Chest Wall Pain (ED), Contusion in Adults (ED) Additional Instructions: Take Tylenol 650 mg every 4 hours and/or Ibuprofen 600 mg every 8 hours with food as needed for pain. Use Percocet every 6 hours as needed for severe/break through pain. Do not use Tylenol and Percocet concomitantly. Apply ice for 30 minutes at a time; 2-3 times per day for the next 1-2 days. Follow up with PCP in 5-7 days if no improvement at which time they will evaluate and recommend with you if conservative management versus further imaging like CT chest scan is indicated. The x-rays obtained in the emergency department today demonstrate no evidence of an obvious fracture. Sometimes fractures are not obvious on the initial set of x-rays performed in the ED. For this reason, you should have repeat x-rays performed in 7-10 days if you are having any pain exclude the possibility of an occult fracture. Referrals: [facility],. [Clinic] - 5-7 days, if not improved Prescriptions: oxyCODONE/APAP 5/325 [Percocet 5/325 (*)] 1 - 2 tab PO Q4H PRN #10 tab PRN Reason: Pain, Severe
== END 2018-04-16 20:07 | disposition home or self-care (01) ==
DX: S20.20XA Contusion of thorax, unspecified, initial encounter (principal); Z87.891 Personal history of nicotine dependence; W01.198A Fall on same level from slipping, tripping and stumbling with subsequent striking against other object, initial encounter; Y92.002 Bathroom of unspecified non-institutional (private) residence as the place of occurrence of the external cause; Y93.9 Activity, unspecified; Y99.9 Unspecified external cause status